=== PATIENT | male | born 1950 | race African-American/Black ===

== ENCOUNTER 2017-03-28 20:02 | Emergency (ER) | payer OTHER, MEDICAID ==
[~2017-03-28] VITALS: Ht 162.6 cm; Wt 68.0 kg
[2017-03-28 20:15] VITALS: BP_SYST 166
[2017-03-28] MEDS ORDERED: ASPIRIN 81 MG TAB.CHEW PO ONE (20:45)
[2017-03-28] MEDS ORDERED: IPRATROPIUM BROM 0.5 MG/2.5 ML VIAL.NEB (ATROVENT) IH ONE (20:45)
[2017-03-28] MEDS ORDERED: LevALBUTEROL HCL 1.25 MG/0.5 ML *CONC.* VIAL.NEB (XOPENEX CONC.) INH ONE ×2 (20:45→22:15)
[2017-03-28 21:23] LABS: BASOPHILS # (AUTO) 0.2 K/uL (0.0-0.2); BASOPHILS % (AUTO) 1.5 % (0.0-2.0); EOSINOPHILS # (AUTO) 0.1 K/uL (0.0-0.4); EOSINOPHILS % (AUTO) 0.4 % (0.0-4.0); HEMATOCRIT 55.3 % (36-54); HEMOGLOBIN 17.5 g/dL (14.0-18.0); LYMPHOCYTES # (AUTO) 1.9 K/uL (1.0-5.5); LYMPHOCYTES % (AUTO) 14.4 % (20.5-51.5); MEAN CORPUSCULAR HEMOGLOBIN 30 pg (27-31); MEAN CORPUSCULAR HGB CONC 32 % (32-36); MEAN CORPUSCULAR VOLUME 94 fL (79.0-98.0); MONOCYTES # (AUTO) 1.2 K/uL (0.0-1.0); MONOCYTES % (AUTO) 8.8 % (1.7-9.3); NEUTROPHILS # (AUTO) 9.7 K/uL (1.8-7.7); NEUTROPHILS % (AUTO) 74.9 % (40.0-70.0); PLATELET COUNT (AUTO) 312 K/uL (130-430); RED BLOOD CELL COUNT(AUTO) 5.87 MIL/uL (4.2-6.2); RED CELL DISTRIBUTION WIDTH 13.4 % (9.0-15.0); WHITE BLOOD COUNT (AUTO) 13.1 K/uL (4.8-10.8)
[2017-03-28 21:42] LABS: PROTHROMBIN TIME 9.8 SECS (9.5-12.5)
[2017-03-28 21:44] LABS: CALCIUM 10.3 mg/dL (8.4-11.0); CREATININE 0.98 mg/dL (0.55-1.30); POTASSIUM 4.5 mmol/L (3.5-5.1)
[2017-03-28 21:49] LABS: ALBUMIN 5.6 g/dL (3.4-4.8); TOTAL BILIRUBIN 1.6 mg/dL (0.0-1.0)
[2017-03-28] MEDS ORDERED: AMOXICILLIN 500 MG CAPSULE PO ONE (22:15)
[2017-03-28] MEDS ORDERED: cloNIDine HCL 0.1 MG TABLET PO ONE (22:45)
[2017-03-28] MEDS ORDERED: PHENAZOPYRIDINE HCL 100 MG TABLET PO ONE (23:00)
[2017-03-28 23:22] LABS: BILIRUBIN,URINE NEGATIVE (NEGATIVE); BLOOD, URINE 1+ (NEGATIVE); CLARITY/URINE CLEAR (CLEAR); COLOR,URINE YELLOW (YELLOW); GLUCOSE,URINE NEGATIVE (NEGATIVE); KETONES,URINE TRACE (NEGATIVE); LEUKOCYTE ESTERASE ,URINE NEGATIVE (NEGATIVE); NITRITE, URINE NEGATIVE (NEGATIVE); PROTEIN URINE NEGATIVE (NEGATIVE); UROBILINOGEN,URINE 0.2 (0.2-1.0)
[2017-03-28 23:26] LABS: BACTERIA,URINE FEW /HPF (None Seen); RBC,URINE 0-3 /HPF (0-3); WBC,URINE 0-3 /HPF (0-3)
[2017-03-29] VITALS: BP_SYST 144
== END 2017-03-29 | disposition home or self-care (01) ==
LOC: SED 20:02
DX: J40 Bronchitis, not specified as acute or chronic (principal); I10 Essential (primary) hypertension; F17.210 Nicotine dependence, cigarettes, uncomplicated
CPT/HCPCS: 36415; 71010; 80053; 81000-TC; 83880; 84484; 85025; 85610-TC; 85730-TC; 93005; 94640; 99285